=== PATIENT | female | born 1990 | race Caucasian/White ===

== ENCOUNTER → 2019-03-28 17:17 | Outpatient (CLI) | payer OTHER, SELFPAY ==
--- NOTE | ~2019-03-28 | XR_ITS ---
EXAMINATION: XR chest 2V 03/28/2019 17:35 INDICATION: Wheezing and dry cough PROCEDURE: 2 view chest COMPARISON: No prior studies for comparison. FINDINGS: The lungs are clear. The cardiomediastinal silhouette is within normal limits. There are no pleural effusions. There is no pneumothorax suspected. IMPRESSION: 1: NO ACUTE CARDIOPULMONARY DISEASE. Reviewed, dictated and finalized at location A. ER SALES MANAGER
== END ==
PROVIDERS: PCP Family Medicine; Visit Provider Nurse Practitioner Family
DX: R06.2 Wheezing (principal)
CPT/HCPCS: 71046

== ENCOUNTER 2022-02-21 13:13 | Emergency (ER) | payer OTHER, SELFPAY ==
[2022-02-21 13:19] VITALS: BP 125/78; PULSE 88; RESP 20; TEMP 35.9; O2SAT 97
--- NOTE | 2022-02-21 14:12 | ED.URI ---
HPI - URI/Sore Throat General Chief Complaint: Upper Respiratory Infection Stated Complaint: Sore Throat Time Seen by Provider: 02/21/22 14:12 Source: patient, RN notes reviewed and old records reviewed Mode of arrival: ambulatory Limitations: no limitations History of Present Illness HPI Narrative: 31-year-old female presents to the [facility] with complaints of sore throat and right ear pain for 2-3 days, worse this morning. Swollen lymph nodes. Related Data Allergies Allergy/AdvReac Type Severity Reaction Status Date / Time almond Allergy Unknown Verified 02/21/22 14:27 Review of Systems Review of Systems: All systems reviewed & are unremarkable except as noted in HPI and below Constitutional: Constitutional: Reports no additional constitutional complaints Eyes: Eyes: Reports no additional eye complaints ENT: Reports as per HPI and Reports sore throat Cardiovascular: Cardiovascular: Reports no additional cardiovascular complaints, Denies chest pain and Denies dyspnea Respiratory: Respiratory: Reports no additional respiratory complaints, Denies chest congestion, Denies cough and Denies dyspnea Gastrointestinal: Gastrointestinal: Reports no additional gastrointestinal complaints, Denies abdominal pain, Denies nausea and Denies vomiting Musculoskeletal: Musculoskeletal: Reports no additional musculoskeletal complaints Integumentary/Breasts: Skin/Breast: Reports system reviewed and no additional complaints, except as docu Neurologic: Reports system reviewed and no additional complaints, except as documented Psychiatric: Psychiatric: Reports no additional psychiatric complaints Allergic/Immunologic: Allergic/Immunologic: Reports no additional allergic/immunologic complaints [facility]LY [facility] Past Medical History Medical History Abnormal laboratory test Acute pain of left knee BMI 34.0-34.9,adult Bronchitis Dietary counseling and surveillance (10/03/16) Family History Family History Father No problems noted. Mother No problems noted. 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 There is no relevant family history pertinent to the patient complaint. Exam Const: General: cooperative, healthy appearing, comfortable, no acute distress, well developed, alert and well nourished Nutritional Appearance: well nourished Orientation/consciousness: patient oriented x3 Limitations: no limitations HENMT: Head: normal to inspection Ears: hearing grossly normal bilaterally and external ears normal Face/Nose/Sinus: Normal external nose present, Normal nares present, Normal nasal mucous membranes and turbinates present and normal facial exam Face and sinus: normal facial exam Mouth: Yes Normal oral and palatal mucosa present, Yes lip normal and Yes moist mucous membranes Throat: uvula midline, abnormal tonsil bilateral erythema, exudates and hypertrophy 3+ and posterior oropharynx abnormal erythema Eyes: General: appearance normal, both eyes and all related structures Alignment and Position: alignment normal Periorbital: periorbital findings normal Conjunctivae: conjunctivae normal Pupils: Equal, round and reactive pupils present EOM: EOMs intact bilaterally Neck: Neck: normal visual inspection, full ROM, no meningeal signs and lymphadenopathy ( bilateral submandibular) Chest: Chest palpation & inspection: normal inspection
== END 2022-02-21 14:41 | disposition home or self-care (01) ==
PROVIDERS: Emergency Provider Nurse Practitioner; PCP Family Medicine
DX: J03.90 Acute tonsillitis, unspecified (principal)
CPT/HCPCS: 99213; G0463

== ENCOUNTER 2022-06-08 08:33 | Emergency (ER) | payer OTHER, SELFPAY ==
[2022-06-08 08:42] VITALS: BP 132/94; PULSE 99; RESP 16; TEMP 36.6; O2SAT 99
--- NOTE | 2022-06-08 09:11 | ED.HEATRA ---
HPI - Head Injury General Chief complaint: Head Injury Stated complaint: HEAD INJURY Time Seen by Provider: 06/08/22 09:11 Source: patient and RN notes reviewed Mode of arrival: ambulatory Limitations: no limitations History of Present Illness HPI Narrative: 31 year old female presented for c/o concern for concussion after injury yesterday at 1530. States she was struck in the head by a softball. Believes the ball ricocheted off of something prior to striking her in the head. She attempted to cover her head when the ball came near her, but when she stood up it struck the head. She states she fell to the ground, did not lose consciousness. [place] dizzy immediately, now resolved. Endorses left upper headache, feeling extremely emotional, and delayed in thinking and processing. Also reports neck pain across the lower neck/shoulder area. Rates pain 7/10. Has not taken anything for pain, stating she did not want to. Applied ice to the site last night. States the knot has subsided. Denies open wounds. Related Data Home Medications Medication Instructions Recorded Confirmed cetirizine 10 mg tablet (Zyrtec) mg 06/08/22 fluticasone propionate 50 1 spray intranasal DAILY 06/08/22 06/08/22 mcg/actuation nasal spray,suspension Allergies Allergy/AdvReac Type Severity Reaction Status Date / Time almond Allergy Unknown Verified 06/08/22 08:41 Review of Systems Review of Systems: CONSTITUTIONAL: Denies body aches, fever, chills, or sweats. EYES: Denies visual changes, photophobia ENT: Denies rhinorrhea, epistaxis or otalgia. CARDIOVASCULAR: Denies chest pain, palpitations, or edema. RESPIRATORY: Denies cough or dyspnea. GASTROINTESTINAL: Denies abdominal pain, nausea, vomiting, or diarrhea. SKIN: Denies rash, itching, or wounds. MUSCULOSKELETAL: Denies back pain, joint pain, or myalgia. NEUROLOGIC: Endorses headache, denies numbness, tingling, or weakness, or dizziness PSYCH: Denies depression or anxiety. All systems reviewed & are unremarkable except as noted in HPI and below PMFSH Past Medical History Medical History Abnormal laboratory test Acute pain of left knee BMI 34.0-34.9,adult Bronchitis Dietary counseling and surveillance (10/03/16) Family History Family History Father No problems noted. Mother No problems noted. 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 Please see nursing chart for further information. There is no relevant family history pertinent to the presenting complaint Exam Narrative: GENERAL: Well-appearing, well-nourished HEAD: Normocephalic, atraumatic; endorses tenderness to left superior parietal area without apparent laceration or obvious contusion EYES: PERRLA, EOMI. ENT: Mucous membranes pink and moist. No rhinorrhea/epistaxis. NECK: Normal AROM. No VPT. Tender to traps bilaterally CHEST: Clear to auscultation. HEART: Regular rate and rhythm. Normal peripheral pulses. ABDOMEN: Soft, nontender, nondistended, normal active bowel sounds. EXTREMITIES: Normal range of motion. No edema. SKIN: Warm, dry, no rash. Capillary refill normal. Normal skin turgor. NEURO:No focal deficits. Alert and oriented x3. Finger to nose intact bilaterally. EOMs intact without nystagmus. No facial droop/asymmetry n
== END 2022-06-08 09:40 | disposition home or self-care (01) ==
PROVIDERS: Emergency Provider Nurse Practitioner Family; PCP Family Medicine
DX: S06.0X0A Concussion without loss of consciousness, initial encounter (principal); W21.07XA Struck by softball, initial encounter
CPT/HCPCS: 99213; G0463

== ENCOUNTER 2023-06-06 18:34 | Observation (INO) | payer OTHER, SELFPAY ==
[2023-06-06] VITALS (14 sets, daily range): BP systolic 131–135; BP diastolic 69–76; PULSE 90–103; O2SAT 99–100; BMI 39.4
--- NOTE | 2023-06-06 18:40 | PC.NURSE ---
Pt arrives to unit with decreased movement, swelling and numbness in legs, and expecting twins.
--- NOTE | 2023-06-06 18:59 | PC.NURSE ---
placed in w/c, escorted to OB for eval call to OB to inform of complaint
--- NOTE | 2023-06-06 19:56 | PC.NURSE ---
Called Dr. Bryant, update on pt, decreased movement, tracing, swelling, and numbness. Orders received to discharge pt with instructions to keep doppler appointment for numbness in leg tomorrow, appointment with spoke maker next week, and discuss when to return to the unit.
--- NOTE | 2023-06-06 20:27 | PC.NURSE ---
Pt discharged with instructions to keep dopple appointment tomorrow, next scheduled appointment, and discussed when to return to the unit.
--- NOTE | 2023-06-06 20:33 | OBADM ---
This patient, Gaye Lew, admitted to the OB room [facility] for observation. Patient/family oriented to hospital policies and general routines including ID bracelet, bed and alarms, visiting hours, pain management, procedures, bathroom and other care routines, personal items, smoking policy, room service/diet, and visiting hours. Patient/Family are encouraged to report perceived risks to care and to ask questions if they do not understand what they are told or what they should do.
--- NOTE | 2023-06-07 08:24 | PM.OBTRLD ---
OB - Triage/Final Diagnosis Visit Information Date of evaluation: 06/06/23 Reason for evaluation: decreased movement Comments/Additional reasons for admission: I have assessed the risk for this patient, Gaye Lew, and determined that she would benefit from observation care. Evaluation Vital signs: Vital Signs - 24 hr 06/06/23 19:08 06/06/23 19:13 06/06/23 19:18 Pulse Rate Blood Pressure Blood Pressure [Left Arm] Pulse Oximetry 99 100 100 Oxygen Delivery 06/06/23 19:23 06/06/23 19:25 06/06/23 19:28 Pulse Rate 93 Blood Pressure 135/76 Blood Pressure [Left Arm] Pulse Oximetry 100 100 Oxygen Delivery 06/06/23 19:30 06/06/23 19:33 06/06/23 19:38 Pulse Rate 91 Blood Pressure 131/69 Blood Pressure [Left Arm] Pulse Oximetry 100 100 Oxygen Delivery 06/06/23 19:43 06/06/23 19:48 06/06/23 19:53 Pulse Rate Blood Pressure Blood Pressure [Left Arm] Pulse Oximetry 100 100 100 Oxygen Delivery 06/06/23 19:58 06/06/23 20:12 06/06/23 20:02 Pulse Rate 93 Blood Pressure Blood Pressure [Left Arm] 135/76 Pulse Oximetry 100 Oxygen Delivery Room Air
== END 2023-06-06 20:27 | disposition home or self-care (01) ==
LOC: ANHED 18:47 → ANHOBPP 18:48
PROVIDERS: Admitting Provider Student in an Organized Health Care Education/Training Program; Emergency Provider Student in an Organized Health Care Education/Training Program; PCP Family Medicine; Visit Provider Student in an Organized Health Care Education/Training Program
DX: O36.8130 Decreased fetal movements, third trimester, not applicable or unspecified (principal); Z3A.28 28 weeks gestation of pregnancy
CPT/HCPCS: 59025; G0378; G0379